=== PATIENT | male | born 1955 | race Caucasian/White ===

== ENCOUNTER 2018-07-08 22:08 | Emergency (ER) | payer OTHER ==
[2018-07-08] MEDS ORDERED: Albuterol/Ipratropium NEB.SOL* Albuterol 2.5 MG/Ipratropium 0.5 MG 3 ML INH ONE (23:05)
[2018-07-08] MEDS ORDERED: Albuterol 2.5 MG/3 ML NEB.SOL* (0.083%) INH PRN (23:06)
[2018-07-08] MEDS ORDERED: predniSONE TAB* 20 MG PO ONE (23:06)
--- NOTE | 2018-07-08 23:07 | ED ---
Respiratory - HPI Summary HPI Summary: This patient is a 62 year old M presenting to [facility] with a chief complaint of chest congestion for the last 3 days. The patient rates the pain 0/10 in severity. Patient reports SOB only at night, pleuritic pain, and dry cough. Patient denies fever. Pt states he will wake up in the mild of the night gasping for air. Hx FL and stent placed [address] Mehta a month ago last stress test was several years ago. - History of Current Complaint Chief Complaint: EDUpperRespComplaint Stated Complaint: CONGESTION/DIFF BREATHING Time Seen by Provider: 07/08/18 22:55 Hx Obtained From: Patient Onset/Duration: Lasting Days - 3, Still Present Timing: Constant Initial Severity: Moderate Current Severity: Moderate Pain Intensity: 0 Character: Cough (Nonproductive) Associated Signs and Symptoms: SOB - Allergy/Home Medications Allergies/Adverse Reactions: Allergies Allergy/AdvReac Type Severity Reaction Status Date / Time aspirin Allergy Nausea And Verified 07/08/18 22:13 Vomiting Penicillins Allergy Nausea And Verified 07/08/18 22:13 Vomiting Home Medications: Home Medications NK [No Home Medications Reported] 07/08/18 [History Confirmed 07/08/18] PMH/Surg Hx/FS Hx/Imm Hx Endocrine/Hematology History: Denies: Hx Diabetes, Hx Systemic Lupus Erythematosus, Hx Unexplained Bleeding Cardiovascular History: Reports: Hx Myocardial Infarction Respiratory History: Reports: Hx Asthma GI History: Denies: Hx Gall Bladder Disease, Hx Obstructive Bowel Infectious Disease History: No Infectious Disease History: Denies: Traveled Outside the [place] in Last 30 Days - Family History Known Family History: Positive: Cardiac Disease, Hypertension - Social History Alcohol Use: Rare Hx Substance Use: No Substance Use Type: Reports: None Hx Tobacco Use: No Smoking Status (MU): Never Smoked Tobacco Review of Systems Negative: Fever Positive: Shortness Of Breath, Cough, Other - chest congestion All Other Systems Reviewed And Are Negative: Yes Physical Exam - Summary Physical Exam Summary: VITAL SIGNS: Reviewed. GENERAL: Patient is a well-developed and nourished male who is lying comfortable in the stretcher. Patient is not in any acute respiratory distress. HEAD AND FACE: No signs of trauma. No ecchymosis, hematomas or skull depressions. No sinus tenderness. EYES: PERRLA, EOMI x 2, No injected conjunctiva, no nystagmus. EARS: Hearing grossly intact. Ear canals and tympanic membranes are within normal limits. MOUTH: Oropharynx within normal limits. NECK: Supple, trachea is midline, no adenopathy, no JVD, no carotid bruit, no c- spine tenderness, neck with full ROM. CHEST: Symmetric, no tenderness at palpation LUNGS: bilateral inspiratory and expiratory wheezes CVS: Regular rate and rhythm, S1 and S2 present, no murmurs or gallops appreciated. ABDOMEN: Soft, non-tender. No signs of distention. No rebound no guarding, and no masses palpated. Bowel sounds are normal. EXTREMITIES: FROM in all major joints, no edema, no cyanosis or clubbing. NEURO: Alert and oriented x 3. No acute neurological deficits. Speech is normal and follows commands. SKIN: Dry and warm Triage Information Reviewed: Yes Vital Signs On Initial Exam: Initial Vitals Temp Pulse Resp BP Pulse Ox 97.8 F 100 18 157/95 100 07/08/18 22:10 07/08/18 22:10 07/08/18 22:10 07/08/18 22:10 07/08/18 22:10 Vital Signs Reviewed: Yes Diagnostics - Vital Signs Vital Signs Temp Pulse Resp BP Pulse Ox 07/08/18 22:10 97.8 F 100 18 157/95 100 - Laboratory Lab Statement: Any lab studies that have been ordered have been reviewed, and results considered in the medical decision making process. - Radiology CXR Radiology Interpretation Completed By: ED Physician - CXR reveals, no acute process. Pending official report. Disposition - Course Assessment/Plan: This patient is a 62 year old M presenting to [facility] with a chief complaint of chest congestion for the last 3 days. The patient rates the pain 0/10 in severity. Patient reports SOB only at night, pleuritic pain, and dry cough. Patient denies fever. Pt states he will wake up in the mild of the night gasping for air. Hx FL and stent placed [address] Mehta a month ago last stress test was several years ago. Pt has a remot history of asthma. CXR reveals, no acute process. Pending official report. In the ED course the patient was given albuterol and prednisone which improve his sx. Patient will be discharged and follow up from PCP. The patient is agreeable with this plan. - Diagnoses Provider Diagnoses: Asthma Discharge - Sign-Out/Discharge Documenting (check all that apply): Patient Departure - Discharge Plan Condition: Stable Disposition: HOME Patient Education Materials: Asthma (DC) Referrals: [facility] [place] [facility] REFERRAL [Outside] - 2 Days Additional Instructions: RETURN TO THE EMERGENCY DEPARTMENT FOR CHANGING OR WORSENING SYMPTOMS. FOLLOW UP WITH PCP IN 1-2 DAYS. - Attestation Statements Document Initiated by Scribe: Yes Documenting Scribe: Arnel Nicole Provider For Whom Scribe is Documenting (Include Credential): Bibi Wilson MD Scribe Attestation: Arnel Mobley , scribed for Bibi Wilson MD on 07/09/18 at 0007.
[2018-07-09 00:28] VITALS: BP 138/71
[2018-07-09] MEDS ORDERED: Albuterol HFA INHALER* 8 gm MDI INH SCH (01:00)
--- NOTE | 2018-07-09 07:52 | RAD ---
HISTORY: Sob COMPARISONS: April 25, 2009 VIEWS: 1: frontal portable view of the chest at 11:20 PM FINDINGS: LINES AND TUBES: None. CARDIOMEDIASTINAL SILHOUETTE: The cardiomediastinal silhouette is normal for portable technique. PLEURA: The costophrenic angles are sharp. No pleural abnormalities are noted. LUNG PARENCHYMA: The lungs are clear. ABDOMEN: The upper abdomen is clear. There is no subphrenic gas. BONES AND SOFT TISSUES: No bone or soft tissue abnormalities are noted. IMPRESSION: NO ACTIVE CARDIOPULMONARY DISEASE. R0
== END 2018-07-09 00:27 | disposition home or self-care (01) ==
LOC: ED 22:08
DX: J45.909 Unspecified asthma, uncomplicated (principal); R09.89 Other specified symptoms and signs involving the circulatory and respiratory systems; Z88.0 Allergy status to penicillin; R06.02 Shortness of breath; R05 Cough
CPT/HCPCS: 71045; 99283; A9270-GY; J7512

== ENCOUNTER 2019-12-08 09:28 | Emergency (ER) | payer OTHER ==
[2019-12-08] MEDS ORDERED: Albuterol/Ipratropium NEB.SOL* Albuterol 2.5 MG/Ipratropium 0.5 MG 3 ML INH ONE (10:21)
[2019-12-08 11:17] VITALS: BP 158/93
--- NOTE | 2019-12-08 11:21 | ED ---
Asthma - HPI Summary HPI Summary: This patient is a 64-year-old otherwise healthy male presenting to the ED with chief complaint of respiratory distress. Patient states he has been short of breath over the past 4-5 days and it is making him difficult to sleep. Symptoms are worse at night, better during the day. He has not used any medications for relief. He is not diagnosed with asthma or COPD, however had a similar episode 2 years ago and was seen in the ED. During this time he was given albuterol inhaler and steroids as well as a breathing treatment. Patient improved and states he has not had another episode since. Patient is a nonsmoker, no alcohol use. He hears himself wheezing, but denies any cough or congestion. Denies any fevers, sweats, chills. Denies any recent illness or flulike symptoms. - History of Current Complaint Chief Complaint: EDShortnessOfBreath Stated Complaint: SOB PER PT Time Seen by Provider: 12/08/19 09:42 Hx Obtained From: Patient Onset/Duration: Sudden Onset Timing: Constant Initial Severity: Moderate Current Severity: Moderate Pain Intensity: 6 Pain Scale Used: 0-10 Numeric Location/Character: Wheezing Associated Signs and Symptoms: Positive: Negative - Risk Factors Status Asthmaticus Risk Factors: Negative - Allergy/Home Medications Allergies/Adverse Reactions: Allergies Allergy/AdvReac Type Severity Reaction Status Date / Time aspirin Allergy Nausea And Verified 12/08/19 09:50 Vomiting Penicillins Allergy Nausea And Verified 12/08/19 09:50 Vomiting Home Medications: Home Medications Cilostazol TAB* [Pletal TAB*] 50 mg PO BID 12/08/19 [History Confirmed 12/08/19] Metformin HCl 500 mg PO BID 12/08/19 [History Confirmed 12/08/19] Metoprolol Tartrate TAB* [Lopressor TAB*] 25 mg PO BID 12/08/19 [History Confirmed 12/08/19] Nitroglycerin 0.4 mg SL Q5M PRN 12/08/19 [History Confirmed 12/08/19] Simvastatin 40 mg PO QPM 12/08/19 [History Confirmed 12/08/19] PMH/Surg Hx/FS Hx/Imm Hx Previously Healthy: Yes Endocrine/Hematology History: Denies: Hx Diabetes, Hx Systemic Lupus Erythematosus, Hx Unexplained Bleeding Cardiovascular History: Reports: Hx Myocardial Infarction Respiratory History: Reports: Hx Asthma GI History: Denies: Hx Gall Bladder Disease, Hx Obstructive Bowel - Immunization History Hx Pertussis Vaccination: No Immunizations Up to Date: Yes Infectious Disease History: No Infectious Disease History: Denies: Traveled Outside the [place] in Last 30 Days - Family History Known Family History: Positive: Cardiac Disease, Hypertension - Social History Occupation: Employed Full-time Lives: With Family Alcohol Use: None Hx Substance Use: No Substance Use Type: Reports: None Hx Tobacco Use: No Smoking Status (MU): Former Smoker Review of Systems Negative: Fever, Chills, Fatigue, Skin Diaphoresis Negative: Palpitations, Chest Pain Positive: Shortness Of Breath. Negative: Cough Genitourinary: Negative Positive: no symptoms reported, see HPI Negative: Arthralgia, Myalgia Skin: Negative All Other Systems Reviewed And Are Negative: Yes Physical Exam Triage Information Reviewed: Yes Vital Signs On Initial Exam: Initial Vitals Temp Pulse Resp BP Pulse Ox 96.9 F 95 18 161/108 99 12/08/19 09:28 12/08/19 09:28 12/08/19 09:28 12/08/19 09:28 12/08/19 09:28 Vital Signs Reviewed: Yes Appearance: Positive: Well-Appearing, Well-Nourished Skin: Positive: Warm, Skin Color Reflects Adequate Perfusion Head/Face: Positive: Normal Head/Face Inspection Eyes: Positive: EOMI, GRISELDA, Conjunctiva Clear Neck: Positive: Supple, No Lymphadenopathy Respiratory/Lung Sounds: Positive: Wheezes. Negative: Decreased Breath Sounds, Rales, Rhonchi, Tracheal Deviation, Unable to speak in full sentences Cardiovascular: Positive: RRR, Pulses are Symmetrical in both Upper and Lower Extremities Musculoskeletal: Positive: Normal, Strength/ROM Intact Neurological: Positive: Alert, Oriented to Person Place, Time, Speech Normal Psychiatric: Positive: Normal, Affect/Mood Appropriate AVPU Assessment: Alert Procedures - Sedation Patient Received Moderate/Deep Sedation with Procedure: No Diagnostics - Vital Signs Vital Signs Temp Pulse Resp BP Pulse Ox 12/08/19 10:30 91 18 99 12/08/19 09:44 94 98 12/08/19 09:28 96.9 F 95 18 161/108 99 - Laboratory Lab Statement: Any lab studies that have been ordered have been reviewed, and results considered in the medical decision making process. Asthma Course/Dx - Course Course Of Treatment: Patient does not appear to be in respiratory distress. No cough is noted on exam. RRR. Lungs wheezing bilaterally without rhonchorous sounds. DuoNeb given and recheck of the lungs found improvement with lung sounds. Pt feeling improved. Patient is afebrile and vital signs are stable. He is discharged with diagnosis of wheezing and is given an albuterol inhaler and prednisone 5 days for relief. - Diagnoses Differential Diagnosis/HQI/PQRI: Positive: Acute Asthma, Bronchitis, COPD Excerbation, Pneumonia, Other - Asthma exacerbation Provider Diagnoses: Wheezing Discharge ED - Sign-Out/Discharge Documenting (check all that apply): Patient Departure - Discharge Plan Condition: Stable Disposition: HOME Prescriptions: Albuterol HFA INHALER* [Ventolin HFA Inhaler*] 1 puff INH Q4H PRN #1 mdi PRN Reason: Shortness Of Breath predniSONE 50 mg TAB [Deltasone 50 mg TAB] 50 mg PO DAILY #4 tab MDD 1 Patient Education Materials: Asthma (ED), Wheezing (ED) Forms: *Work Release Referrals: Miguel Harrington MD [Primary Care Provider] - Additional Instructions: Albuterol inhaler as needed for any shortness of breath Prednisone once daily in the morning - Billing Disposition and Condition Condition: STABLE Disposition: Home - Attestation Statements Provider Attestation: I was available for consult. This patient was seen by the CYNDIE. The patient was not presented to, seen by, or examined by me. Jian Stanton MD
== END 2019-12-08 11:16 | disposition home or self-care (01) ==
LOC: ED 09:28
DX: J45.909 Unspecified asthma, uncomplicated (principal); I25.2 Old myocardial infarction; Z88.0 Allergy status to penicillin; Z87.891 Personal history of nicotine dependence; Z88.6 Allergy status to analgesic agent
CPT/HCPCS: 99282; A9270-GY; J7512